=== PATIENT | female | born 1980 | race Caucasian/White ===

== ENCOUNTER → 2017-09-13 13:56 | Outpatient (CLI) | payer BC, SELFPAY ==
[2017-09-13 15:09] LABS: Hemoglobin A1C 6.3 % (0.0-7.0)
== END ==
PROVIDERS: PCP Pediatrics; Visit Provider Pediatrics
DX: E11.9 Type 2 diabetes mellitus without complications (principal)
CPT/HCPCS: 36415; 83036

== ENCOUNTER 2021-10-01 11:15 | Emergency (ER) | payer OTHER, SELFPAY ==
[2021-10-01 11:38] VITALS: BP 147/91; PULSE 93; RESP 18; TEMP 36.9; O2SAT 97; BMI 37.4
--- NOTE | 2021-10-01 11:43 | HMH.EDUTC ---
[facility] [place] Clinical Impression: Otitis media Qualifiers: Otitis media type: unspecified Laterality: left Qualified Code(s): H66.92 - Otitis media, unspecified, left ear Disposition: Home, Self-Care Condition on Discharge: Good Instructions: Middle Ear Infection, Cefdinir Additional Instructions: *Monitor Temp, Over the counter Motrin or Tylenol as directed/as needed Tylenol every 4 hours and Motrin every 6 hours (as long as your family doctor has told you that you can take it) for fever or pain. and straight to ER if unable to lower temp less than 101.0 after medication given Take medication as prescribed *Sleep elevated *Humidifier/Vaporizer *Flonase 2 sprays in each nostril daily but be aware that it may take 2-3 days before you notice improvement Follow up IMMEDIATELY for new or worsening symptoms or no Noticeable improvement over the next 48-72 hours. 911 for difficulty breathing or swallowing Prescriptions: Cefdinir [Omnicef 300mg Capsule] 300 mg PO BID #20 cap Transmission Status: Pending to [id number] Referrals: Tung Reddy [Primary Care Provider] - As needed Time of Disposition: 11:46 Medical Decision Making - Kota Inquiry Pt receiving controlled substance: No Kota was queried for this patient: No Vital Signs: 10/01/21 11:38 Temperature 98.4 F Temperature Source Oral Pulse Rate [Left] 93 H Respiratory Rate 18 Blood Pressure [Right Arm] 147/91 H Blood Pressure Mean [Right Arm] 109 02 Sat by Pulse Oximetry 97 Medical Decision Narrative: Patient states that she is allergic to PCN but has taken Cefdinir in the past without complications or reactions [facility] [place] - General Stated complaint: lt ear pain Time Seen by Provider: 10/01/21 11:43 Mode of Arrival: Ambulatory Source of Information: Patient Limitations: No Limitations Description of Symptoms (Recalled from Triage Doc. by RN): pt states that yesterday she began having left ear pain and facial discomfort HEENT Symptoms (Recalled from RN notes): Yes Resp Symptoms (Recalled from RN notes): No Skin Symptoms (Recalled from RN notes): No MS Symptoms (Recalled from RN notes): Yes Functional Status (Recalled from RN notes): wnl - History of Present Illness Provider Complaint: Patient states that she has bad ears and gets ear infections often State that she has been having pain and pressure in her left ear for the last couple of days that has continued to get worse State that this morning while she was chewing it was shooting pain into her ear so she came in to get checked - Related Data Previous Rx's Medication Instructions Recorded Cefdinir [Omnicef 300mg Capsule] 300 mg PO BID #20 cap 10/01/21 Allergies Allergy/AdvReac Type Severity Reaction Status Date / Time NSAIDS (Non-Steroidal Allergy Verified 10/01/21 11:41 Anti-Inflamma Penicillins Allergy Verified 10/01/21 11:41 Sulfa (Sulfonamide Allergy Verified 10/01/21 11:41 Antibiotics) - Worker's Comp Is this a Worker's Comp case?: No [facility] History - Hepatitis A Screen Attestation statement:: This patient has been screened for Hepatitis A risk factors. I have reviewed the patient's past medical history: Yes ROS Obtained: Yes All systems reviewed & no additional complaints, Yes Systems reviewed as appropriate & no additional complaints - Constitutional Constitutional: Reports system reviewed and no additional complaints, except as docu, Denies body ache, Denies chills, Denies fever(s) - ENT Ears, Nose, Mouth, and Throat: Reports system reviewed and no additional complaints, except as docu, Reports otalgia, Reports nasal congestion - Cardiovascular Cardiovascular: Reports system reviewed and no additional complaints, except as docu - Respiratory Respiratory: Reports system reviewed and no additional complaints, except as docu - Gastrointestinal Gastrointestingal: Reports: system reviewed and no additional complaints, excep
[2021-10-01 12:01] VITALS: BP 147/91; PULSE 93; RESP 18; TEMP 36.9
--- NOTE | 2022-02-11 18:27 | EXP.EVENT.NO ---
ED called for LP. Cosent obtained form Parents of patient. Procedure explained to patient. Patient assisted to sitting position. Sterile prep. # ml 1% lido infiltrate to l2-3. # 22 Quinke spinal needle used. CSF noted not clear in color. -heme. !ml collected in 4 containers. Patient tolerated well. Assisted to lying position. Patient alert but drowsy as before procedure.
== END 2021-10-01 12:02 | disposition home or self-care (01) ==
PROVIDERS: Emergency Provider Nurse Practitioner; PCP Pediatrics
DX: H66.92 Otitis media, unspecified, left ear (principal); Z88.0 Allergy status to penicillin; Z88.2 Allergy status to sulfonamides; Z88.6 Allergy status to analgesic agent
CPT/HCPCS: 99213; G0463

== ENCOUNTER 2022-05-19 08:43 | Emergency (ER) | payer BC, SELFPAY ==
[2022-05-19 09:10] VITALS: BP 141/86; PULSE 86; RESP 18; TEMP 36.8; O2SAT 99; BMI 36.1
--- NOTE | 2022-05-19 09:14 | EXP.UTC ---
Discharge Plan Disposition Patient Disposition: Home, Self-Care Condition: Good Prescriptions Prescriptions: New fluticasone propionate [Flonase Allergy Relief] 50 mcg/actuation spray,suspension 1 spray intranasal DAILY Qty: 16 0RF Rx Instructions: administer into each nostril azithromycin [Zithromax Z-Santiago] 250 mg tablet See Rx Instructions .ROUTE .COMPLEX 5 Days Qty: 6 0RF Rx Instructions: For 250 mg dose pack: take 500 mg today (day 1), then 250 mg for 4 days (days 2-5) Referrals Follow up/Referrals: Tung Reddy [Primary Care Provider] - See instructions Activity Restrictions/Add. Instructions Additional Instructions/Restrictions: *Monitor Temp, Over the counter Motrin or Tylenol as directed/as needed Tylenol every 4 hours and Motrin every 6 hours (as long as your family doctor has told you that you can take it) for fever or pain. and straight to ER if unable to lower temp less than 101.0 after medication given *Warm salt water gargles may help to soothe the throat *Throat Lozenges? *Warm fluids like tea with honey may help to soothe the throat? *Sleep elevated *Humidifier/Vaporizer *Flonase 2 sprays in each nostril daily but be aware that it may take 2-3 days before you notice improvement Your throat swab was sent for culture. Those results are typically sent to your primary care. Be sure to follow up in 2-3 days with your family doctor/primary care physician if no improvement so they can review those result and treat if necessary. If you don?t have a primary care doctor, I recommend you get one but in the mean time, you will have to return to a walk in clinic Follow up IMMEDIATELY for new or worsening symptoms or no Noticeable improvement over the next 48-72 hours. 911 for difficulty breathing or swallowing Clinical Impressions Clinical Impression: URI (upper respiratory infection) Qualifiers: URI type: unspecified URI Qualified Code(s): J06.9 - Acute upper respiratory infection, unspecified Instructions Patient Instructions: Sore Throat, DI for Ear Pain-Adult Discharge ED Provider: Vivien Mcmahan [facility] General Stated complaint: sore throat, bilateral ear pain Time Seen by Provider: 05/19/22 09:14 History of Present Illness Provider Complaint: Patient states that she has been having nasal congestion and bilateral ear pain with sore throat States that today she wasnt feeling any better so she came in to get checked Related Data Previous Rx's Medication Instructions Recorded azithromycin 250 mg tablet See Rx Instructions PO .COMPLEX 5 05/19/22 (Zithromax Z-Santiago) days #6 tabs fluticasone propionate 50 1 spray intranasal DAILY #16 grams 05/19/22 mcg/actuation nasal spray,suspension (Flonase Allergy Relief) Allergies Allergy/AdvReac Type Severity Reaction Status Date / Time NSAIDS (Non-Steroidal Allergy Verified 10/01/21 11:41 Anti-Inflamma Penicillins Allergy Verified 10/01/21 11:41 Sulfa (Sulfonamide Allergy Verified 10/01/21 11:41 Antibiotics) [facility] Disclaimer: The information contained in this section may have been updated after the patient was seen, as this information can be updated by other users. Medical History (Updated 05/19/22 @ 09:16 by Vivien Mcmahan APRN) Anxiety Depression Diabetes mellitus, type 2 Hx of nephrolithotomy with removal of calculi Hypertension Kidney stone Thyroid disease Surgical History (Updated 05/19/22 @ 09:15 by Jennifer Vann RN) History of back surgery History of section History of cholecystectomy History of tympanostomy tube placement Social History Smoking Status: Unknown if ever smoked alcohol intake: never current occupational status: employed Travel in the last 8 weeks: None ROS Obtained: Yes All systems reviewed & no additional complaints except as documented and Yes Systems reviewed as appropriate & no additional complaints except as
[2022-05-19 09:17] LABS: UTC Strep Screen (Rapid) Negative (Negative)
[2022-05-19 09:28] VITALS: BP 141/86; PULSE 86; RESP 18; TEMP 36.8; O2SAT 99
[2022-05-19 09:42] LABS: Adenovirus,PCR Not Detected (NotDetected); Bordetella Pertussis Not Detected (NotDetected); Chlamydophila Pneumoniae, PCR Not Detected (NotDetected); Coronavirus 19, PCR Not Detected (NotDetected); Coronavirus 229E Not Detected (NotDetected); Coronavirus NL63 Not Detected (NotDetected); Coronavirus OC43 Not Detected (NotDetected); Coronovirus HKU1,PCR Not Detected (NotDetected); Human Metapneumovirus Not Detected (NotDetected); Influenza A, PCR Not Detected (NotDetected); Influenza AH1, 2009 Not Detected (NotDetected); Influenza AH1, PCR Not Detected (NotDetected); Influenza AH3,PCR Not Detected (NotDetected); Influenza B, PCR Not Detected (NotDetected); Mycoplasma Pneumoniae, PCR Not Detected (NotDetected); Parainfluenza 1, PCR Not Detected (NotDetected); Parainfluenza 2, PCR Not Detected (NotDetected); Parainfluenza 3, PCR Not Detected (NotDetected); Parainfluenza 4, PCR Not Detected (NotDetected); Respiratory Syncytial Virus Not Detected (NotDetected); Rhinovirus/Enterovirus Not Detected (NotDetected)
== END 2022-05-19 09:29 | disposition home or self-care (01) ==
PROVIDERS: Emergency Provider Nurse Practitioner; PCP Pediatrics
DX: J06.9 Acute upper respiratory infection, unspecified (principal)
CPT/HCPCS: 87581; 87632; 87798; 87880; 99212; C9803; G0463; U0003; U0005

== ENCOUNTER 2023-02-03 10:53 | Emergency (ER) | payer BC, SELFPAY ==
[2023-02-03 11:05] VITALS: BP 146/99; PULSE 89; RESP 18; TEMP 36.8; O2SAT 95; BMI 36.3
--- NOTE | 2023-02-03 11:23 | EXP.UTC ---
Discharge Plan Disposition Patient Disposition: Home, Self-Care Condition: Good Prescriptions Prescriptions: New prednisone [prednisone] 20 mg tablet 20 mg PO BID 4 Days Qty: 8 0RF cefdinir 300 mg capsule 300 mg PO BID Qty: 20 0RF No Action levothyroxine 137 mcg tablet 137 mcg PO DAILY norethindrone (contraceptive) 0.35 mg tablet 0.35 mg PO DAILY metformin 750 mg tablet extended release 24 hr 750 mg PO DAILY metoprolol tartrate 25 mg tablet 25 mg PO BID levocetirizine [Xyzal] 5 mg Tablet 5 mg PO DAILY Referrals Follow up/Referrals: Tung Reddy [Primary Care Provider] - See instructions Activity Restrictions/Add. Instructions Additional Instructions/Restrictions: Drink plenty of fluids. Take tylenol or ibuprofen for pain or fever. Take the medications as directed. Follow up with your regular doctor. GO TO THE ER FOR ANY WORSENING SYMPTOMS Clinical Impressions Clinical Impression: Acute left otitis media Instructions Patient Instructions: Middle Ear Infection Discharge ED Provider: Obi Feldman [facility] General Stated complaint: jaw pain, ear pain Mode of Arrival: Ambulatory Source of Information: Patient Limitations: No Limitations Time Seen by Provider: 02/03/23 11:23 Description of Symptoms (Recalled from Triage Doc. by RN): Lower jaw pain and ear pain HEENT Symptoms (Recalled from RN notes): Yes Resp Symptoms (Recalled from RN notes): No Skin Symptoms (Recalled from RN notes): No MS Symptoms (Recalled from RN notes): No Functional Status (Recalled from RN notes): n/a History of Present Illness Provider Complaint: She c/o left ear pain and pressure for the past 2 weeks. Related Data Home Medications Medication Instructions Recorded Confirmed levocetirizine 5 mg tablet (Xyzal) 5 mg PO DAILY allergies 02/03/23 02/03/23 levothyroxine 137 mcg tablet 137 mcg PO DAILY thyroid 02/03/23 02/03/23 metformin 750 mg tablet,extended 750 mg PO DAILY Diabetes 02/03/23 02/03/23 release 24 hr metoprolol tartrate 25 mg tablet 25 mg PO BID HTN 02/03/23 02/03/23 norethindrone (contraceptive) 0.35 0.35 mg PO DAILY b/c 02/03/23 02/03/23 mg tablet Previous Rx's Medication Instructions Recorded cefdinir 300 mg capsule 300 mg PO BID #20 caps 02/03/23 prednisone 20 mg tablet 20 mg PO BID 4 days #8 tabs 02/03/23 Allergies Allergy/AdvReac Type Severity Reaction Status Date / Time NSAIDS (Non-Steroidal Allergy Verified 02/03/23 11:21 Anti-Inflamma Penicillins Allergy Verified 02/03/23 11:21 Sulfa (Sulfonamide Allergy Verified 02/03/23 11:21 Antibiotics) Worker's Comp Is this a Worker's Comp case?: No [facility] Disclaimer: The information contained in this section may have been updated after the patient was seen, as this information can be updated by other users. Medical History (Updated 02/03/23 @ 11:43 by Obi Feldman APRN) Anxiety Depression Diabetes mellitus, type 2 Hx of nephrolithotomy with removal of calculi Hypertension Kidney stone Thyroid disease Surgical History History of back surgery History of section History of cholecystectomy History of tympanostomy tube placement Social History Smoking Status: Unknown if ever smoked alcohol intake: never current occupational status: employed Travel in the last 8 weeks: None ROS Obtained: Yes All systems reviewed & no additional complaints except as documented Constitutional Constitutional: Denies chills, Reports fever(s) and Reports poor appetite Eyes Eyes: Denies eye discharge ENT Ears, Nose, Mouth, and Throat: Denies ear discharge, Reports otalgia, Denies hearing loss, Denies sinus pain and Reports sore throat Cardiovascular Cardiovascular: Denies chest pain and Denies dyspnea Respiratory Respiratory: Denies chest congestion, Reports
[2023-02-03 11:52] VITALS: BP 146/99; PULSE 89; RESP 18; TEMP 36.8; O2SAT 95
== END 2023-02-03 11:52 | disposition home or self-care (01) ==
PROVIDERS: Emergency Provider Nurse Practitioner Family; PCP Pediatrics
DX: H66.93 Otitis media, unspecified, bilateral (principal); E11.9 Type 2 diabetes mellitus without complications; I10 Essential (primary) hypertension; E03.9 Hypothyroidism, unspecified; F41.9 Anxiety disorder, unspecified; F32.A Depression, unspecified; Z79.84 Long term (current) use of oral hypoglycemic drugs
CPT/HCPCS: 99212; 99214; G0463

== ENCOUNTER 2024-03-11 17:36 | Emergency (ER) | payer BC, SELFPAY ==
[2024-03-11 17:55] VITALS: BP 145/99; PULSE 91; RESP 20; TEMP 37.3; O2SAT 98; BMI 34.5
--- NOTE | 2024-03-11 18:02 | ED_ITS ---
Discharge Plan Disposition Patient Disposition: Home, Self-Care Condition: Good Prescriptions Prescriptions: New methylprednisolone [Medrol (Santiago)] 4 mg tablets,dose pack See Rx Instructions .Route .COMPLEX 6 Days Qty: 21 0RF Rx Instructions: taper pack; cefdinir 300 mg capsule 300 mg PO BID Qty: 20 0RF No Action levothyroxine 137 mcg tablet 137 mcg PO DAILY norethindrone (contraceptive) 0.35 mg tablet 0.35 mg PO DAILY metformin 750 mg tablet extended release 24 hr 750 mg PO DAILY metoprolol tartrate 25 mg tablet 25 mg PO BID levocetirizine [Xyzal] 5 mg Tablet 5 mg PO DAILY prednisone [prednisone] 20 mg tablet 20 mg PO BID 4 Days Qty: 8 0RF cefdinir 300 mg capsule 300 mg PO BID Qty: 20 0RF Referrals Follow up/Referrals: Tung Reddy [Primary Care Provider] - See instructions Activity Restrictions/Add. Instructions Additional Instructions/Restrictions: Take medication as prescribed Follow up with your Family Doctor if no improvement or any worsening of symptoms Make sure to drink plenty of fluids Return if needed Straight to ER if any life threatening symptoms Clinical Impressions Clinical Impression: Otitis media Instructions Patient Instructions: Middle Ear Infection, Ear Infections (Alternative Therapy) Print Language Print Language: Maori Discharge ED Provider: Vivien Mcmahan [facility] [place] General Stated complaint: ear ache Mode of Arrival: Ambulatory Source of Information: Patient Time Seen by Provider: 03/11/24 18:02 Description of Symptoms (Recalled from Triage Doc. by RN): SORE THROAT, SINUS PRESSURE, LEFT EAR PAIN HEENT Symptoms (Recalled from RN notes): Yes Resp Symptoms (Recalled from RN notes): Yes Skin Symptoms (Recalled from RN notes): No MS Symptoms (Recalled from RN notes): No Functional Status (Recalled from RN notes): WNL History of Present Illness Provider Complaint: Patient states that she recently got back from [place] and started with sore throat, sinus congestion and pressure, and pain and pressure in her left ear States today the pain in her ear was bothering so she came in States she does have a hx of TMJ not sure if that may be acting up or not too Related Data Home Medications ?Medication ?Instructions ?Recorded ?Confirmed levocetirizine 5 mg tablet (Xyzal) 5 mg PO DAILY allergies 09/10/23 10/16/24 levothyroxine 137 mcg tablet 137 mcg PO DAILY thyroid 02/03/23 03/11/24 metformin 750 mg tablet,extended 750 mg PO DAILY Diabetes 02/03/23 03/11/24 release 24 hr metoprolol tartrate 25 mg tablet 25 mg PO BID HTN 02/03/23 03/11/24 norethindrone (contraceptive) 0.35 0.35 mg PO DAILY b/c 02/03/23 02/03/23 mg tablet Previous Rx's ?Medication ?Instructions ?Recorded cefdinir 300 mg capsule 300 mg PO BID #20 caps 02/03/23 prednisone 20 mg tablet 20 mg PO BID 4 days #8 tabs 02/03/23 cefdinir 300 mg capsule 300 mg PO BID #20 caps 03/11/24 methylprednisolone 4 mg tablets in See Rx Instructions .Route 03/11/24 a dose pack (Medrol (Santiago)) .COMPLEX 6 days #21 tabs Allergies Allergy/AdvReac Type Severity Reaction Status Date / Time NSAIDS (Non-Steroidal Allergy Verified 02/03/23 11:21 Anti-Inflamma Penicillins Allergy Verified 02/03/23 11:21 Sulfa (Sulfonamide Allergy Verified 02/03/23 11:21 Antibiotics) Worker's Comp Is this a Worker's Comp case?: No [facility] Disclaimer: The information contained in this section may have been updated after the patient was seen, as this information can be updated by other users. Medical History (Updated 03/11/24 @ 18:11 by Vivien Mcmahan APRN) Thyroid disease Depression Anxiety Hx of nephrolithotomy with removal of calculi Kidney stone Diabetes mellitus, type 2 Hypertension Surgical History History of tympanostomy tube placement History of back surgery History of cholecystectomy History of section Social History Smoking Status: Unknown if ever smoked alcohol intake: never current occupational status: employed Travel in the last 8 weeks: None ROS Obtained: Yes All systems reviewed & no additional complaints except as documented and Yes Systems reviewed as appropriate & no additional complaints except as documented Constitutional Constitutional: Reports system reviewed and no additional complaints, except as documented and Reports as per HPI ENT Ears, Nose, Mouth, and Throat: Reports system reviewed and no additional complaints, except as documented, Reports as per HPI, Reports otalgia, Reports sinus pain, Reports sinus pressure and Reports sore throat Cardiovascular Cardiovascular: Reports system reviewed and no additional complaints, except as documented and Reports as per HPI Respiratory Respiratory: Reports system reviewed and no additional complaints, except as documented and Reports as per HPI Gastrointestinal Gastrointestingal: Reports system reviewed and no additional complaints, except as documented and as per HPI Physical Exam General General appearance: alert and in no apparent distress ENT ENT exam: Present mucous membranes moist Expanded ENT Exam TM/Canal exam: Left TM: erythema and Bilateral TM: bulging Nose exam: Present sinus tenderness Throat exam: Present other (Pharyngeal erythema noted with PND) Respiratory Respiratory exam: Present normal lung sounds bilaterally; Absent respiratory distress or wheezes Cardiovascular Cardiovascular exam: Present regular rate, normal rhythm and normal heart sounds Neurological Exam Neurological exam: Present alert, oriented X3 and normal gait Medical Decision Making Medical Records Screening: Per USPSTF and CDC recommendations, given the prevalence of disease in our region, it is our hospital?s policy to screen for HIV and viral Hepatitis for all patients aged 18 and over and those with ongoing risk factors. Kota Inquiry Pt receiving controlled substance: No Kota was queried for this patient: No Vital Signs: 03/11/24 17:55 Temperature 99.2 F Temperature Source Oral Pulse Rate [Left Brachial] 91 H Respiratory Rate 20 Blood Pressure [Left Arm] 145/99 H Blood Pressure Mean [Left Arm] 114 02 Sat by Pulse Oximetry 98 Medical Decision Narrative: Patient states that she has taken Cefdnir and Medrol in the past without complications or reactions
[2024-03-11 18:11] LABS: UTC Strep Screen (Rapid) Negative (Negative)
[2024-03-11 18:19] VITALS: BP 145/99; PULSE 91; RESP 20; TEMP 37.3
== END 2024-03-11 18:20 | disposition home or self-care (01) ==
PROVIDERS: Emergency Provider Nurse Practitioner; PCP Pediatrics
DX: H66.92 Otitis media, unspecified, left ear (principal); J02.9 Acute pharyngitis, unspecified; H92.02 Otalgia, left ear
CPT/HCPCS: 87880; 99212; G0381

== ENCOUNTER 2024-09-08 14:52 | Emergency (ER) | payer BC, SELFPAY ==
[2024-09-08] VITALS (14 sets, daily range): BP systolic 130–163; BP diastolic 79–100; PULSE 74–102; RESP 16–18; TEMP 36.6–36.7; O2SAT 95–100; BMI 34.7
--- NOTE | 2024-09-08 15:28 | CT_ITS ---
FINAL REPORT TECHNIQUE: Axial imaging of the lumbar spine was obtained without contrast. Reformatted images were also obtained and reviewed.This study was performed with techniques to keep radiation doses as low as reasonably achievable, (ALARA). Individualized dose reduction techniques using automated exposure control or adjustment of mA and/or kV according to the patient's size were employed. CLINICAL HISTORY: L3-L4 HNP, back pain, radicular pain FINDINGS: There is no acute fracture or subluxation. The vertebra are normal height. There is no malalignment. Facets are properly aligned. There is multilevel degenerative disc disease with midline disc osteophyte complex resulting in central canal stenosis and neuroforaminal narrowing, most pronounced at L4-5 and L5-S1. Prevertebral soft tissues unremarkable. IMPRESSION: No acute bony abnormality. Degenerative disc disease. Consider MRI for further evaluation. Reviewed, Interpreted and Dictated by Mary Crain MD Transcribed by Katey Lin Authenticated and . [facility]
--- NOTE | 2024-09-08 15:32 | HMH.EDGENADL ---
Discharge Plan Disposition Patient Disposition: Xfer Other Condition: Good Prescriptions Prescriptions: New gabapentin 300 mg capsule 300 mg PO Q8H PRN (Reason: pain) Qty: 12 0RF No Action levothyroxine 137 mcg tablet 137 mcg PO DAILY norethindrone (contraceptive) 0.35 mg tablet 0.35 mg PO DAILY metformin 750 mg tablet extended release 24 hr 750 mg PO DAILY metoprolol tartrate 25 mg tablet 25 mg PO BID levocetirizine [Xyzal] 5 mg Tablet 5 mg PO DAILY prednisone [prednisone] 20 mg tablet 20 mg PO BID 4 Days Qty: 8 0RF cefdinir 300 mg capsule 300 mg PO BID Qty: 20 0RF methylprednisolone [Medrol ([place])] 4 mg tablets,dose pack See Rx Instructions .Route .COMPLEX 6 Days Qty: 21 0RF Rx Instructions: taper pack; cefdinir 300 mg capsule 300 mg PO BID Qty: 20 0RF Referrals Follow up/Referrals: Provider,Referral, MD [Primary Care Provider] - See instructions Clinical Impressions Clinical Impression: Acute right lumbar radiculopathy, Intractable low back pain Stand Alone Forms Stand Alone Forms: Transfer Record - ED Instructions Patient Instructions: DI for Low Back Pain Print Language Print Language: Swazi Discharge ED Provider: Abbie Ibarra General Adult HPI <SUSAN Jimenez - Last Filed: 09/08/24 20:30> General Chief complaint: Back Pain/Injury Stated complaint: back pain Time Seen by Provider: 09/08/24 14:55 Mode of Arrival: EMS Source of Information: Patient Description of Symptoms (Recalled from ER Triage Doc. by RN): Patient complaint of lower back pain that got worse this morning. States that in Apr 19 she was told that she has a bulging disc at L2-L3. Patient reports taking two Hydrocodone and one flexeril prior to ems arrival. History of Present Illness HPI narrative: 43-year-old female presents emerged part via EMS with lower back pain and right sided radicular pain that has been going on of March 2024, however worsened/exacerbated by bending over to feed the cat today , she endorses pain that shoots down the right side of the lumbar spine, down the right leg, anterior laterally and posteriorly. She previously diagnosed with a bulging/herniated disc at L2-L3, she has been undergoing pain management/with epidural injections to the lumbar spine, last was in July or 2024. She is slated to see spine surgery next week. Of note, she denies any urinary bladder or bowel dysfunction, denies any real upper or lower extremity weakness, has been ambulating with a cane last several months due to the pain. Denies any real numbness or tingling. Denies any saddle anesthesia. Patient is taken to 7.5 mg p.o. [place] today around 12:15 PM, as well as 10 mg Flexeril, she was given 25 mcg of IM fentanyl and route per EMS. She still rates her pain a 10 out of 10, was a 12 out of 10 . Denies any fever chills chest pain shortness of breath nausea vomiting constipation diarrhea no abdominal pain, no other acute symptomatology. Other past medical history consistent with hypertension, type 2 diabetes, hypothyroidism, she has had prior discectomies at L4-L5 and L3-L4, starting in 2011 in 2013. Patient denies any alcohol tobacco or drug use. Initial triage vitals unremarkable. Onset (ago): hour(s) Related Data Home Medications ?Medication ?Instructions ?Recorded ?Confirmed levocetirizine 5 mg tablet (Xyzal) 5 mg PO DAILY allergies 02/03/23 03/11/24 levothyroxine 137 mcg tablet 137 mcg PO DAILY thyroid 02/03/23 03/11/24 metformin 750 mg tablet,extended 750 mg PO DAILY Diabetes 02/03/23 03/11/24 release 24 hr metoprolol tartrate 25 mg tablet 25 mg PO BID HTN 02/03/23 03/11/24 norethindrone (contraceptive) 0.35 0.35 mg PO DAILY b/c 02/03/23 02/03/23 mg tablet Previous Rx's ?Medication ?Instructions ?Recorded cefdinir 300 mg capsule 300 mg PO BID #20 caps 02/03/23 prednisone 20 mg tablet 20 mg PO BID 4 days #8 tabs 02/03/23 cefdinir 300 mg capsule 300 mg PO BID #20 caps 03/11/24 methylprednisolone 4 mg tablets in See Rx Instructions .Route 03/11/24 a dose pack (Medrol ([place])) .COMPLEX 6 days #21 tabs gabapentin 300 mg capsule 300 mg PO Q8H PRN pain #12 caps 09/08/24 Allergies Allergy/AdvReac Type Severity Reaction Status Date / Time NSAIDS (Non-Steroidal Allergy Verified 02/03/23 11:21 Anti-Inflamma Penicillins Allergy Verified 02/03/23 11:21 Sulfa (Sulfonamide Allergy Verified 02/03/23 11:21 Antibiotics) [facility] <SUSAN Jimenez - Last Filed: 09/08/24 20:30> [facility] Disclaimer: The information contained in this section may have been updated after the patient was seen, as this information can be updated by other users. Medical History (Updated 09/08/24 @ 20:29 by SUSAN Jimenez) Thyroid disease Depression Anxiety Hx of nephrolithotomy with removal of calculi Kidney stone Diabetes mellitus, type 2 Hypertension Surgical History History of tympanostomy tube placement History of back surgery History of cholecystectomy History of section Social History Smoking Status: Never smoker alcohol intake: never current occupational status: employed Travel in the last 8 weeks: None Have you lived/traveled outside [place] in past 30 days?: No Contact w/someone who lives/traveled outside US past 30 days?: No Exposure to someone with infectious disease in past 14 days?: No Do you have a fever (greater than 100.4 F or 38 C)?: No Have you tested positive for COVID-19: No Exposed to someone with COVID-19 in past 14 days?: No Do you have a sore throat?: No Do you have a cough?: No Do you have any weakness?: No Do you have any diarrhea?: No Are you experiencing any unusual bleeding?: No Do you have any muscle aches/pain?: No Do you have any abdominal pain?: No Are you experiencing loss of taste or smell?: No <SUSAN Jimenez - Last Filed: 09/08/24 20:30> ROS Obtained: Yes All systems reviewed & no additional complaints except as documented Physical Exam <SUSAN Jimenez - Last Filed: 09/08/24 20:30> General General appearance: alert and in no apparent distress Comment: Uncomfortable appearing female Head Head exam: atraumatic and normocephalic Eye Eye exam: Present PERRL and EOMI ENT ENT exam: Present mucous membranes moist Neck Neck exam: Present normal inspection Chest Chest inspection: Present normal inspection and symmetric chest wall rise Respiratory Respiratory exam: Present normal lung sounds bilaterally; Absent respiratory distress Cardiovascular Cardiovascular exam: Present regular rate and normal rhythm Abdominal Exam Abdominal exam: Present soft; Absent tenderness Extremities Exam Extremities exam: Present normal inspection Back Exam Back exam: Present normal inspection and straight leg raise (R) Neurological Exam Neurological exam: Present alert, oriented X3 and other (Patient has 5 out of 5 strength in bilateral lower extremities with plantarflexion dorsiflexion, moves extremity command, no sensation deficit.) Psychiatric Psychiatric exam: Present normal affect Skin Skin exam: Present warm and dry Medical Decision Making <SUSAN Jimenez - Last Filed: 09/08/24 20:30> Medical Records Medical records reviewed: Yes I reviewed the patient's medical records. Screening: Per USPSTF and CDC recommendations, given the prevalence of disease in our region, it is our hospital?s policy to screen for HIV and viral Hepatitis for all patients aged 18 and over and those with ongoing risk factors. [place] Inquiry Pt receiving controlled substance: No [place] was queried for this patient: No Vital Signs: 09/08/24 14:53 09/08/24 15:00 09/08/24 15:15 Temperature 97.9 F Temperature Source Oral Pulse Rate 85 81 Pulse Rate [Radial] 76 Respiratory Rate 16 16 17 Blood Pressure 137/83 130/79 Blood Pressure [Right Arm] 147/83 H Blood Pressure Mean Blood Pressure Mean [Right Arm] 104 Blood Pressure Source [Right Arm] Automatic Cuff Blood Pressure Position [Right Arm] Sitting 02 Sat by Pulse Oximetry 98 96 95 Oxygen Delivery Method Room Air Room Air Room Air 09/08/24 15:30 09/08/24 16:14 09/08/24 16:30 Temperature Temperature Source Pulse Rate 79 95 H 74 Pulse Rate [Radial] Respiratory Rate 18 Blood Pressure 151/82 H 140/98 H 151/84 H Blood Pressure [Right Arm] Blood Pressure Mean 115 Blood Pressure Mean [Right Arm] Blood Pressure Source [Right Arm] Blood Pressure Position [Right Arm] 02 Sat by Pulse Oximetry 97 100 100 Oxygen Delivery Method Room Air Room Air Room Air 09/08/24 16:58 09/08/24 17:00 09/08/24 17:30 Temperature Temperature Source Pulse Rate 96 H 90 Pulse Rate [Radial] Respiratory Rate Blood Pressure 160/95 H 161/96 H 163/99 H Blood Pressure [Right Arm] Blood Pressure Mean 118 Blood Pressure Mean [Right Arm] Blood Pressure Source [Right Arm] Blood Pressure Position [Right Arm] 02 Sat by Pulse Oximetry 97 97 Oxygen Delivery Method Room Air Room Air 09/08/24 17:45 09/08/24 18:00 09/08/24 18:15 Temperature Temperature Source Pulse Rate Pulse Rate [Radial] Respiratory Rate Blood Pressure 146/95 H 135/87 140/91 H Blood Pressure [Right Arm] Blood Pressure Mean 119 103 110 Blood Pressure Mean [Right Arm] Blood Pressure Source [Right Arm] Blood Pressure Position [Right Arm] 02 Sat by Pulse Oximetry Oxygen Delivery Method 09/08/24 18:30 Temperature Temperature Source Pulse Rate Pulse Rate [Radial] Respiratory Rate Blood Pressure 149/93 H Blood Pressure [Right Arm] Blood Pressure Mean 119 Blood Pressure Mean [Right Arm] Blood Pressure Source [Right Arm] Blood Pressure Position [Right Arm] 02 Sat by Pulse Oximetry Oxygen Delivery Method Orders (Tests/Meds): ED MEDICATIONS Discontinued Medications Generic Name Dose Route Start Last Admin Trade Name Freq PRN Reason Stop Dose Admin Dexamethasone Sodium Phosphate 10 mg 09/08/24 15:34 09/08/24 15:49 Dexamethasone 4mg/Ml 1ml Vial IM 09/08/24 15:35 10 mg ONCE ONE Administration Diazepam 5 mg 09/08/24 15:35 09/08/24 15:49 Diazepam 5mg Tablet PO 09/08/24 15:36 5 mg ONCE ONE Administration Gabapentin 300 mg 09/08/24 17:01 09/08/24 18:04 Gabapentin 100mg Capsule PO 09/08/24 17:02 300 mg ONCE ONE Administration Hydromorphone HCl 0.5 mg 09/08/24 17:27 09/08/24 18:04 Hydromorphone 2mg/Ml Syringe IM 09/08/24 17:28 0.5 mg ONCE ONE Administration Hydromorphone HCl 0.5 mg 09/08/24 20:30 09/08/24 20:42 Hydromorphone 2mg/Ml Syringe IV 09/08/24 20:31 0.5 mg ONCE ONE Administration Ketorolac Tromethamine 15 mg 09/08/24 15:32 09/08/24 15:48 Ketorolac 30mg/Ml Vial IM 09/08/24 15:33 15 mg ONCE ONE Administration ORDERS Category Date Time Status CT lumbar spine wo con Stat Cat Scan 09/08/24 15:28 Completed HIV Combo Stat Lab 09/08/24 15:00 Ordered Hepatitis C Ab Qual. W/ RFX Stat Lab 09/08/24 15:00 Ordered Medical Decision Narrative: 43-year-old female presents emerged part with lower lumbar spine pain and right-sided radicular pain, differential diagnose include but limited to, acute lumbar sacral strain, degenerative disease lumbar spine, herniated nucleus pulposus, acute radiculopathy, foraminal stenosis, facet arthropathy. I discussed patient case with attending physician Obtain CT lumbar spine without contrast further evaluate/characterization, will give 5 mg p.o. Valium, 15 mg IM Toradol, and 10 mg IM dexamethasone for symptomatic relief. Notified by nursing staff that patient states she is still experiencing quite severe pain. Will trial 300 mg p.o. gabapentin for symptomatic relief, patient is neuropathic pain. I reviewed and independently interpreted the patient's CT lumbar spine without contrast on the corresponding radiologic report, multilevel degenerative disc disease, midline disc osteophyte complex resulting in central canal stenosis and neuroforaminal stenosis most apparent at L4-L5, L5-S1, prevertebral soft tissues unremarkable. Reexamination of the patient at approximately 5:25 PM, states her pain is still quite severe at a 9 out of 10, will give 0.5 mg IM Dilaudid for pain. I will with the attending physician and reexamine the patient, and spoke with the patient the bedside at approximately 6:35 PM, patient is still having quite significant pain, and is requesting transfer. Patient states I know I need surgery . And would feel more comfortable with us attempting transfer at the patient request for intractable pain and lower back pain/spine pathology to [facility] and that is where her spine surgeon is located. We unfortunately are unable to get MRI of the lumbar spine here at this facility at this time. I discussed this patient's case with Dr. Connor neurosurgery at [facility] at approximately 7:10 PM. He accepted the patient for transfer and will have patient admitted to medicine service, pending inpatient call from hospitalist and pending bed availability. Cussed the patient's case with Dr. Bro kapoorist at 8 PM, he is agreement with current admission plan/treatment plan. Patient will be admitted to [facility] for hernia nucleus pulposus at L2-L3, requiring MRI of the lumbar spine and neurosurgical consultation. I discussed need for transfer/admission with the patient family bedside patient family agree with current treatment plan/transfer plan. Will give additional dose of 0.5 mg IV Dilaudid, and place IV prior to transfer as requested from outside hospital. <Abbie Ibarra, DO - Last Filed: 09/08/24 20:47> Vital Signs: 09/08/24 14:53 09/08/24 15:00 09/08/24 15:15 Temperature 97.9 F Temperature Source Oral Pulse Rate 85 81 Pulse Rate [Radial] 76 Respiratory Rate 16 16 17 Blood Pressure 137/83 130/79 Blood Pressure [Right Arm] 147/83 H Blood Pressure Mean Blood Pressure Mean [Right Arm] 104 Blood Pressure Source [Right Arm] Automatic Cuff Blood Pressure Position [Right Arm] Sitting 02 Sat by Pulse Oximetry 98 96 95 Oxygen Delivery Method Room Air Room Air Room Air 09/08/24 15:30 09/08/24 16:14 09/08/24 16:30 Temperature Temperature Source Pulse Rate 79 95 H 74 Pulse Rate [Radial] Respiratory Rate 18 Blood Pressure 151/82 H 140/98 H 151/84 H Blood Pressure [Right Arm] Blood Pressure Mean 115 Blood Pressure Mean [Right Arm] Blood Pressure Source [Right Arm] Blood Pressure Position [Right Arm] 02 Sat by Pulse Oximetry 97 100 100 Oxygen Delivery Method Room Air Room Air Room Air 09/08/24 16:58 09/08/24 17:00 09/08/24 17:30 Temperature Temperature Source Pulse Rate 96 H 90 Pulse Rate [Radial] Respiratory Rate Blood Pressure 160/95 H 161/96 H 163/99 H Blood Pressure [Right Arm] Blood Pressure Mean 118 Blood Pressure Mean [Right Arm] Blood Pressure Source [Right Arm] Blood Pressure Position [Right Arm] 02 Sat by Pulse Oximetry 97 97 Oxygen Delivery Method Room Air Room Air 09/08/24 17:45 09/08/24 18:00 09/08/24 18:15 Temperature Temperature Source Pulse Rate Pulse Rate [Radial] Respiratory Rate Blood Pressure 146/95 H 135/87 140/91 H Blood Pressure [Right Arm] Blood Pressure Mean 119 103 110 Blood Pressure Mean [Right Arm] Blood Pressure Source [Right Arm] Blood Pressure Position [Right Arm] 02 Sat by Pulse Oximetry Oxygen Delivery Method 09/08/24 18:30 Temperature Temperature Source Pulse Rate Pulse Rate [Radial] Respiratory Rate Blood Pressure 149/93 H Blood Pressure [Right Arm] Blood Pressure Mean 119 Blood Pressure Mean [Right Arm] Blood Pressure Source [Right Arm] Blood Pressure Position [Right Arm] 02 Sat by Pulse Oximetry Oxygen Delivery Method Orders (Tests/Meds): ED MEDICATIONS Discontinued Medications Generic Name Dose Route Start Last Admin Trade Name Freq PRN Reason Stop Dose Admin Dexamethasone Sodium Phosphate 10 mg 09/08/24 15:34 09/08/24 15:49 Dexamethasone 4mg/Ml 1ml Vial IM 09/08/24 15:35 10 mg ONCE ONE Administration Diazepam 5 mg 09/08/24 15:35 09/08/24 15:49 Diazepam 5mg Tablet PO 09/08/24 15:36 5 mg ONCE ONE Administration Gabapentin 300 mg 09/08/24 17:01 09/08/24 18:04 Gabapentin 100mg Capsule PO 09/08/24 17:02 300 mg ONCE ONE Administration Hydromorphone HCl 0.5 mg 09/08/24 17:27 09/08/24 18:04 Hydromorphone 2mg/Ml Syringe IM 09/08/24 17:28 0.5 mg ONCE ONE Administration Hydromorphone HCl 0.5 mg 09/08/24 20:30 09/08/24 20:42 Hydromorphone 2mg/Ml Syringe IV 09/08/24 20:31 0.5 mg ONCE ONE Administration Ketorolac Tromethamine 15 mg 09/08/24 15:32 09/08/24 15:48 Ketorolac 30mg/Ml Vial IM 09/08/24 15:33 15 mg ONCE ONE Administration ORDERS Category Date Time Status CT lumbar spine wo con Stat Cat Scan 09/08/24 15:28 Completed HIV Combo Stat Lab 09/08/24 15:00 Ordered Hepatitis C Ab Qual. W/ RFX Stat Lab 09/08/24 15:00 Ordered Medical Decision Narrative: 43-year-old female presents emerged part with lower lumbar spine pain and right-sided radicular pain, differential diagnose include but limited to, acute lumbar sacral strain, degenerative disease lumbar spine, herniated nucleus pulposus, acute radiculopathy, foraminal stenosis, facet arthropathy. I discussed patient case with attending physician Obtain CT lumbar spine without contrast further evaluate/characterization, will give 5 mg p.o. Valium, 15 mg IM Toradol, and 10 mg IM dexamethasone for symptomatic relief. Notified by nursing staff that patient states she is still experiencing quite severe pain. Will trial 300 mg p.o. gabapentin for symptomatic relief, patient is neuropathic pain. I reviewed and independently interpreted the patient's CT lumbar spine without contrast on the corresponding radiologic report, multilevel degenerative disc disease, midline disc osteophyte complex resulting in central canal stenosis and neuroforaminal stenosis most apparent at L4-L5, L5-S1, prevertebral soft tissues unremarkable. Reexamination of the patient at approximately 5:25 PM, states her pain is still quite severe at a 9 out of 10, will give 0.5 mg IM Dilaudid for pain. I will with the attending physician and reexamine the patient, and spoke with the patient the bedside at approximately 6:35 PM, patient is still having quite significant pain, and is requesting transfer. Patient states I know I need surgery . And would feel more comfortable with us attempting transfer at the patient request for intractable pain and lower back pain/spine pathology to [facility] and that is where her spine surgeon is located. We unfortunately are unable to get MRI of the lumbar spine here at this facility at this time. I discussed this patient's case with Dr. Connor neurosurgery at [facility] at approximately 7:10 PM. He accepted the patient for transfer and will have patient admitted to medicine service, pending inpatient call from hospitalist and pending bed availability. Cussed the patient's case with Dr. Crabtree hospitalist at 8 PM, he is agreement with current admission plan/treatment plan. Patient will be admitted to [facility] for hernia nucleus pulposus at L2-L3, requiring MRI of the lumbar spine and neurosurgical consultation. I discussed need for transfer/admission with the patient family bedside patient family agree with current treatment plan/transfer plan. Will give additional dose of 0.5 mg IV Dilaudid, and place IV prior to transfer as requested from outside hospital. DO Fred: I was consulted by the ADRIANA, and we discussed the complexity of the problems being addressed. I approved the treatment and management plan for this patient's care in the emergency department, thus performing a substantive portion of the medical decision making. Abbie Ibarra DO Critical Care <SUSAN Jimenez - Last Filed: 09/08/24 20:30> Critical Care Time Critical Care Time: No
[2024-09-08] MEDS: KETOROLAC 30MG/ML VIAL 15 MG IM (15:48)
[2024-09-08] MEDS: DEXAMETHASONE 4MG/ML 1ML VIAL 10 MG IM (15:49)
[2024-09-08] MEDS: diazePAM 5MG TABLET 5 MG PO (15:49)
[2024-09-08] MEDS: HYDROMORPHONE 2MG/ML SYRINGE 0.5 MG IM (18:04)
[2024-09-08] MEDS: GABAPENTIN 100MG CAPSULE 300 MG PO (18:04)
--- NOTE | 2024-09-08 18:38 | PC.NURSE ---
provider at bedside for reevaluation. Dr. Ibarra reported that the patient wouldnt attempt to ambulate due to her pain. pt was offered admission to [facility] for her pain but refused as is requesting to be transferred to [place] at this time because thats where her spine surgeon is
--- NOTE | 2024-09-08 18:50 | PC.NURSE ---
Ellen Hanley Just called about transfer per Noah. They are paging their doctor and calling back.
--- NOTE | 2024-09-08 19:53 | PC.NURSE ---
[place] Hospitalist on the phone with SUSAN
[2024-09-08] MEDS: HYDROMORPHONE 2MG/ML SYRINGE 0.5 MG IV (20:42)
== END 2024-09-08 21:07 | disposition other institution (70) ==
PROVIDERS: Emergency Provider Emergency Medicine
DX: M51.26 Other intervertebral disc displacement, lumbar region (principal)
CPT/HCPCS: 72131; 96372; 96374; 99285; J1100; J1171; J1885